=== PATIENT | male | born 1960 | race Caucasian/White ===

== ENCOUNTER → 2019-10-10 | Day surgery (SDC) | payer MEDICARE, OTHER ==
[~2019-10-10] MED LIST: Lactated Ringers 1,000 ML IV SCH; Lidocaine 1% 4 ML ONE; Lidocaine 1%/Sod Bicarbonate in NS 8.4% 1 ML Syringe IDERM PRN; Propofol 200 MG/20 ML SDV ONE; Sodium Chloride 0.9% 10 ML Syringe FLUSH PRN
--- NOTE | 2019-10-10 07:28 | PCM.PREANE ---
Preanesthetic Assessment - Anesthesia/Transfusion/Family Hx Anesthesia History: Prior Anesthesia Without Reaction Family History of Anesthesia Reaction: No Transfusion History: Prior Transfusion Without Reaction - Review of Systems General: No Symptoms Pulmonary: No Symptoms Cardiovascular: No Symptoms Gastrointestinal: No Symptoms Neurological: No Symptoms Other: Reports: None - Physical Assessment NPO Status Date: 10/09/19 NPO Status Time: 17:00 Vital Signs: Last Vital Signs Temp 35.8 C L 10/10/19 06:35 Pulse 73 10/10/19 06:35 Resp 16 10/10/19 06:35 BP 113/72 10/10/19 06:35 Pulse Ox 96 10/10/19 06:35 Height: 1.85 m Weight: 67.585 kg ASA Class: 2 Mental Status: Alert & Oriented x3 Airway Class: Mallampati = 1 Dentition: Reports: Normal Dentition Thyro-Mental Finger Breadths: 3 Mouth Opening Finger Breadths: 3 ROM/Head Extension: Full Lungs: Clear to Auscultation, Normal Respiratory Effort Cardiovascular: Regular Rate, Regular Rhythm - Lab Values: Laboratory Last Values COVID-19 PCR Not detected (NOT DETECT) 10/06/19 11:00 - Allergies Allergies/Adverse Reactions: Allergies Allergy/AdvReac Type Severity Reaction Status Date / Time No Known Allergies Allergy Verified 10/10/19 07:15 - Acknowledgements Anesthesia Type Planned: MAC Pt an Appropriate Candidate for the Planned Anesthesia: Yes Alternatives and Risks of Anesthesia Discussed w Pt/Guardian: Yes Pt/Guardian Understands and Agrees with Anesthesia Plan: Yes PreAnesthesia Questionnaire HEENT History: Reports: Other (See Below) Other HEENT History: dysphagia Cardiovascular History: Reports: None, Blood Clots/VTE/DVT, SOB on Exertion Respiratory History: Reports: None Gastrointestinal History: Reports: Cholelithiasis, Chronic Constipation, Diverticulosis, Hepatitis Genitourinary History: Reports: None 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 Musculoskeletal History: Reports: None, Back Pain, Chronic Neurological History: Reports: Brain Injury Psychiatric History: Reports: None Hematologic History: Reports: Blood Transfusion(s), Other (See Below) Other Hematologic History: DVT, antiphosphlipid syndrome Immunologic History: Reports: None Oncologic (Cancer) History: Reports: None Dermatologic History: Reports: None - Past Surgical History Head Surgeries/Procedures: Reports: None HEENT Surgical History: Reports: None Cardiovascular Surgical History: Reports: None Respiratory Surgical History: Reports: None GI Surgical History: Reports: Colonoscopy, EGD Female Surgical History: Reports: None Male Surgical History: Reports: None Endocrine Surgical History: Reports: Other (See Below) Other Endocrine Surgeries/Procedures: post splenectomy Neurological Surgical History: Reports: None Musculoskeletal Surgical History: Reports: None Oncologic Surgical History: Reports: None Dermatological Surgical History: Reports: None - SUBSTANCE USE Smoking Status *Q: Former Smoker Recreational Drug Use History: No - HOME MEDS Home Medications: Home Meds Acetaminophen/oxyCODONE [Percocet 325-5 MG] 1 tab PO Q6H PRN 10/07/19 [History] Naloxegol Oxalate [Movantik] 25 mg PO DAILY 10/07/19 [History] Sertraline [Zoloft] 50 mg PO DAILY 10/07/19 [History] Warfarin Sodium [Jantoven] 5 mg PO DAILY 10/07/19 [History] polyethylene glycoL 3350 [MiraLAX] 1 dose PO DAILY 10/07/19 [History] Enoxaparin [Lovenox] 80 mg SUBCUT ASDIRECTED 10/10/19 [History] - CURRENT (IN HOUSE) MEDS Current Meds: Current Medications Lactated Ringer's (Ringers, Lactated) 1,000 mls @ 125 mls/hr IV ASDIRECTED [facility] Stop: 10/10/19 23:00 Last Admin: 10/10/19 06:55 Dose: 125 mls/hr Documented by: Lidocaine/Sodium Bicarbonate (Buffered Lidocaine 1% In Ns 8.4%) 0.25 ml IDERM ONETIME PRN PRN Reason: Prior to IV Start Stop: 10/10/19 18:00 Last Admin: 10/10/19 06:55 Dose: 0.25 ml Documented by: Sodium Chloride (Saline Flush) 10 ml FLUSH ASDIRECTED PRN PRN Reason: Keep Vein Open Stop: 10/10/19 18:00 Discontinued Medications Lidocaine HCl (Xylocaine-Mpf 1%) Confirm Administered Dose 4 mls @ as directed .ROUTE .STK-MED ONE Stop: 10/10/19 07:02 Propofol (Diprivan 20 Ml) Confirm Administered Dose 200 mg .ROUTE .STK-MED ONE Stop: 10/10/19 07:02 Propofol (Diprivan 20 Ml) Confirm Administered Dose 200 mg .ROUTE .STK-MED ONE Stop: 10/10/19 07:04
--- NOTE | 2019-10-10 09:33 | PCM48HPAN ---
Post Anesthesia Note - EVALUATION WITHIN 48HRS OF ANESTHETIC Vital Signs in Normal Range: Yes Patient Participated in Evaluation: Yes Respiratory Function Stable: Yes Airway Patent: Yes Cardiovascular Function Stable: Yes Hydration Status Stable: Yes Pain Control Satisfactory: Yes Nausea and Vomiting Control Satisfactory: Yes Mental Status Recovered: Yes Vital Signs: Last Vital Signs Temp 35.8 C L 10/10/19 06:35 Pulse 73 10/10/19 06:35 Resp 16 10/10/19 06:35 BP 113/72 10/10/19 06:35 Pulse Ox 96 10/10/19 06:35
--- NOTE | 2019-10-11 09:28 | PROC ---
DATE OF OPERATION: 10/10/2019 SURGEON: Robles Ceron MD PREOPERATIVE DIAGNOSES: 1. Hematochezia. 2. Early satiety. 3. Family history of colon cancer. POSTOPERATIVE DIAGNOSES: 1. Gastritis with patch gastric petechiae. 2. Inflamed internal hemorrhoids that were banded. PROCEDURES: 1. Esophagogastroduodenoscopy. 2. Colonoscopy. 3. Hemorrhoid banding. ANESTHESIA: Monitored anesthesia care. ESTIMATED BLOOD LOSS: Minimal. INDICATION AND CONSENT: Mr. Proctor is a 59-year-old male who presented and was evaluated in clinic for history of constipation, bloody bowel movement, and early satiety. The patient has family history of colon cancer. He has been battling constipation for a long time and he has seen blood in stool on several occasions. He denied any excruciating pain with passing of bowel movement. The patient is currently on anticoagulation, warfarin, due to a history of DVT and PE. Because of his bleeding episode, history of colon cancer, as well as upper GI symptoms, EGD and colonoscopy were offered to the patient. Discussion about risks, benefits, and alternatives was done and the patient agreed to proceed with the procedure. Informed consent was obtained. The patient was asked to stop anticoagulation, warfarin, 5 days prior to the procedure and bridge with Lovenox, which he is to stop 1 day before the procedure. The patient did exactly as told. DESCRIPTION OF PROCEDURE: The patient was taken to the procedure room, placed in supine position. Following induction of monitored anesthesia care, the patient's position was turned to left lateral decubitus. Time-out was performed. Then, we began the procedure by placing a scope into the mouth and going all the way down through the esophagus to the stomach and to the second portion of duodenum. The duodenum was normal. In the stomach, there were numerous patchy areas of petechiae throughout the stomach. There was no active bleeding, but there were also signs of inflammation in the stomach marked by diffuse granularity. Due to these findings, samples were taken first from the antrum, stomach body, as well as the cardia. The endoscope was withdrawn to the esophagus. The esophagus appeared normal. Z-line was irregular. Therefore, samples were taken from the Z-line as well. The rest of the esophagus appeared normal. The scope was withdrawn from the esophagus and we proceeded with colonoscopy. External exam and digital exam revealed fairly inflamed hemorrhoids. All 3 columns of hemorrhoids were about grade 3 and part of them were inflamed, showing denudation of the mucosa in 2 of the 3 columns. There was no active bleeding. Scope was inserted into the colon and taken all the way to the cecum. Appendiceal orifice and ileocecal valve were photographed. Prep was adequate in quality. The scope was then withdrawn from the cecum, examining the entirety of the colonic mucosa all the way out. There were no polyps. There were diverticulosis scattered and small. There were no other signs of bleeding. Around 10 cm from the anal verge, there was an area that was clearly demarcated that appeared erythematous and red, likely due to scope trauma. This was not biopsied. This area was small, was about 1 cm x 0.5 cm. Then, on retroflexion, we again visualized those 3 columns of grade 3 hemorrhoids. At this point, air was suctioned out and scope was withdrawn concluding the colonoscopy procedure. We proceeded with hemorrhoid banding. A banding device was used and 2 columns of internal hemorrhoids, the right posterior and right anterior were banded. These were the largest and the most denuded hemorrhoids. The left lateral column was left intact due to risk of bleeding. There was minimal bleeding after this procedure and this concluded the procedure for today. The patient will be allowed to go home today. The patient is instructed to do sitz baths, take MiraLAX and Metamucil as well as Tylenol for pain. The patient is instructed to call the office or come to the ED should he start bleeding profusely. The patient is asked to not take any antiplatelets or anticoagulants for 10 days post procedure. The patient verbalized understanding. MMODAL /[id number] MARICARMEN
== END | disposition home or self-care (01) ==
LOC: JD.SDS 06:34
PROVIDERS: ATTEND Surgery
DX: K57.31 Diverticulosis of large intestine without perforation or abscess with bleeding (principal); K29.70 Gastritis, unspecified, without bleeding; K20.9 Esophagitis, unspecified; K64.2 Third degree hemorrhoids; K22.70 Barrett's esophagus without dysplasia; K31.89 Other diseases of stomach and duodenum; Z11.59 Encounter for screening for other viral diseases; Z98.890 Other specified postprocedural states; Z80.0 Family history of malignant neoplasm of digestive organs; Z79.899 Other long term (current) drug therapy; Z87.891 Personal history of nicotine dependence
CPT/HCPCS: 36415; 43239; 45378; 46221; 85610; 88305; J2001; J2704; J7120; U0002; 00813

== ENCOUNTER 2020-02-03 12:31 | Emergency (ER) | payer MEDICARE, OTHER ==
[2020-02-03] MEDS ORDERED: Ondansetron 4 MG/2 ML SDV IVPUSH ONE (13:02)
[2020-02-03] MEDS ORDERED: HYDROmorphone 1 MG/ML Syringe IVPUSH ONE (13:02)
--- NOTE | 2020-02-03 13:04 | EDM.PDOC ---
ED HPI GENERAL MEDICAL PROBLEM - General Chief Complaint: Lower Extremity Injury/Pain Stated Complaint: [facility] Time Seen by Provider: 02/03/20 12:57 Source of Information: Reports: Patient, RN Notes Reviewed History Limitations: Reports: No Limitations - History of Present Illness INITIAL COMMENTS - FREE TEXT/NARRATIVE: Patient is a 59-year-old male who presents to the ED via [facility] for the evaluation of his left hip pain. Patient states that he did fall outside his house earlier today, landed on his left hip. There is external rotation noted. But no shortening. There is an obvious deformity or swelling at the hip as well. He states there is quite a bit of pain with any sort of movement. He was not able to walk on this afterwards. He denies any numbness or tingling into his left leg. Patient denies any other sick-like symptoms, fever/chills, cough/shortness of breath, nausea/vomiting/diarrhea. He further denies any prior issues with his hip. The patient's primary care provider is Dr. Brandt Barakat. Left Hip Pain Score (Numeric/FACES): 8 - Related Data Allergies Allergy/AdvReac Type Severity Reaction Status Date / Time No Known Allergies Allergy Verified 02/03/20 12:41 Home Meds: Home Meds Acetaminophen/oxyCODONE [Percocet 325-5 MG] 1 tab PO Q6H PRN 10/07/19 [History] Naloxegol Oxalate [Movantik] 25 mg PO DAILY 10/07/19 [History] Sertraline [Zoloft] 50 mg PO DAILY 10/07/19 [History] Warfarin Sodium [Jantoven] 5 mg PO DAILY 10/07/19 [History] polyethylene glycoL 3350 [MiraLAX] 1 dose PO DAILY 10/07/19 [History] Past Medical History HEENT History: Reports: Other (See Below) Other HEENT History: dysphagia Cardiovascular History: Reports: Blood Clots/VTE/DVT, SOB on Exertion Respiratory History: Reports: None Gastrointestinal History: Reports: Cholelithiasis, Chronic Constipation, Diverticulosis, Hepatitis Genitourinary History: Reports: None 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 Musculoskeletal History: Reports: Back Pain, Chronic, Fracture Neurological History: Reports: Brain Injury Psychiatric History: Reports: None Hematologic History: Reports: Blood Transfusion(s), Other (See Below) Other Hematologic History: DVT, antiphosphlipid syndrome Immunologic History: Reports: None Oncologic (Cancer) History: Reports: None Dermatologic History: Reports: None - Past Surgical History Respiratory Surgical History: Reports: None GI Surgical History: Reports: Colonoscopy, EGD, Other (See Below) Other GI Surgeries/Procedures: splenectomy Social & Family History - Tobacco Use Tobacco Use Status *Q: Former Tobacco User Used Tobacco, but Quit: Yes Month/Year Tobacco Last Used: 2014 - Caffeine Use Caffeine Use: Reports: Coffee - Recreational Drug Use Recreational Drug Use: No Review of Systems - Review of Systems Review Of Systems: Comprehensive ROS is negative, except as noted in HPI. ED EXAM, GENERAL - Physical Exam Exam: See Below Exam Limited By: No Limitations General Appearance: Alert, WD/WN, No Apparent Distress Respiratory/Chest: No Respiratory Distress, Lungs Clear, Normal Breath Sounds, No Accessory Muscle Use, Chest Non-Tender Cardiovascular: Normal Peripheral Pulses, Regular Rate, Rhythm, No Murmur GI/Abdominal: Normal Bowel Sounds, Soft, Non-Tender, No Distention, No Mass Extremities: Normal Capillary Refill, Limited Range of Motion (of left hip d/t pain. there is an obvious deformity noted to lef hip vs. swelling) Neurological: Alert, Oriented, Normal Cognition Psychiatric: Normal Affect, Normal Mood Skin Exam: Warm, Dry, Intact, Normal Color, No Rash #1 Interpretation EKG Date: 02/03/20 Time: 14:54 Rhythm: NSR Rate (Beats/Min): 74 [place]: Normal P-Wave: Present QRS: Normal ST-T: Normal QT: Normal Comparison: NA - No Prior EKG EKG Interpretation Comments: No obvious ischemia or acute ST changes noted, reviewed by myself and Dr. Watson. Course - Vital Signs Last Recorded V/S: Last Vital Signs Temp 97.9 F 02/03/20 12:39 Pulse 72 02/03/20 12:39 Resp 16 02/03/20 12:39 BP 143/89 H 02/03/20 12:39 Pulse Ox 94 L 02/03/20 12:39 - Orders/Labs/Meds Orders: Active Orders 24 hr Category Date Time Status EKG Documentation Completion [RC] STAT Care 02/03/20 14:25 Active Floyd Catheter Insertion [Insert Urinary Catheter] [OM. Care 02/03/20 17:39 Ordered PC] Stat Urinary Catheter Assessment [RC] ASDIRECTED Care 02/03/20 17:42 Ordered Hip Min 2V or 3V w Pelvis Lt [CR] Stat Exams 02/03/20 12:43 Taken Hip wo Cont Lt [CT] Stat Exams 02/03/20 17:35 Ordered INR,PT,PROTHROMBIN TIME [COAG] Stat Lab 02/03/20 17:36 Ordered PTT,PARTIAL THROMBOPLSTIN TIME [COAG] Stat Lab 02/03/20 17:36 Ordered Labs: Laboratory Tests 02/03/20 02/03/20 02/03/20 Range/Units 14:32 14:32 14:47 WBC 15.51 H (4.23-9.07) K/mm3 RBC 4.83 (4.63-6.08) M/mm3 Hgb 15.7 (13.7-17.5) gm/dl Hct 45.9 (40.1-51.0) % MCV 95.0 H (79.0-92.2) fl MCH 32.5 H (25.7-32.2) pg MCHC 34.2 (32.2-35.5) g/dl RDW Std Deviation 47.7 H (35.1-43.9) fL Plt Count 274 (163-337) K/mm3 MPV 9.9 (9.4-12.3) fl Neut % (Auto) 82.8 H (34.0-67.9) % Lymph % (Auto) 9.5 L (21.8-53.1) % [place] % (Auto) 7.5 (5.3-12.2) % Eos % (Auto) 0 L (0.8-7.0) Baso % (Auto) 0.2 (0.1-1.2) % Neut # (Auto) 12.85 H (1.78-5.38) K/mm3 Lymph # (Auto) 1.47 (1.32-3.57) K/mm3 [place] # (Auto) 1.16 H (0.30-0.82) K/mm3 Eos # (Auto) 0.00 L (0.04-0.54) K/mm3 Baso # (Auto) 0.03 (0.01-0.08) K/mm3 Manual Slide Review Abnormal smear Sodium 135 L (136-145) mEq/L Potassium 4.6 (3.5-5.1) mEq/L Chloride 102 (98-107) mEq/L Carbon Dioxide 25 (21-32) mEq/L Anion Gap 12.6 (5-15) BUN 11 (7-18) mg/dL Creatinine 1.0 (0.7-1.3) mg/dL Est Cr Clr Drug Dosing 77.14 mL/min Estimated GFR (MDRD) > 60 (>60) mL/min BUN/Creatinine Ratio 11.0 L (14-18) Glucose 115 (80-115) mg/dL Calcium 9.3 (8.5-10.1) mg/dL Total Bilirubin 0.7 (0.2-1.0) mg/dL AST 33 (15-37) U/L ALT 41 (16-63) U/L Alkaline Phosphatase 66 (46-116) U/L Total Protein 7.4 (6.4-8.2) g/dl Albumin 3.9 (3.4-5.0) g/dl Globulin 3.5 gm/dL Albumin/Globulin Ratio 1.1 (1-2) SARS-CoV-2 RNA (SOFYA) Negative (NEGATIVE) Meds: Medications Discontinued Medications Generic Name Dose Route Start Last Admin Trade Name Freq PRN Reason Stop Dose Admin Hydromorphone HCl 1 mg 02/03/20 13:02 02/03/20 13:47 Dilaudid IVPUSH 02/03/20 13:03 1 mg ONETIME ONE Administration Hydromorphone HCl 0.5 mg 02/03/20 14:50 02/03/20 15:06 Dilaudid IVPUSH 02/03/20 14:51 0.5 mg ONETIME ONE Administration Hydromorphone HCl 0.5 mg 02/03/20 17:42 Dilaudid IVPUSH 02/03/20 17:43 ONETIME ONE Ondansetron HCl 4 mg 02/03/20 13:02 02/03/20 13:47 Zofran IVPUSH 02/03/20 13:03 4 mg ONETIME ONE Administration - Re-Assessments/Exams Free Text/Narrative Re-Assessment/Exam: 02/03/20 13:05 Patient presents to the ED for his left hip pain. Have ordered x-rays, will give the patient 1 mg IV Dilaudid for pain management purposes along with 4 mg Zofran. There is something obviously wrong with his left hip, questioning fracture versus dislocation. 02/03/20 14:28 The patient's hip x-ray has been obtained, and there is comminution and impaction at the left surgical neck and trochanter Departure - Departure Time of Disposition: 16:45 Disposition: DC/Tfer to Acute Hospital 02 Condition: Good Clinical Impression: Hip fracture, left Qualifiers: Encounter type: initial encounter Fracture type: closed Qualified Code(s): S72.002A - Fracture of unspecified part of neck of left femur, initial encounter for closed fracture - Discharge Information *PRESCRIPTION DRUG MONITORING PROGRAM REVIEWED*: No *COPY OF PRESCRIPTION DRUG MONITORING REPORT IN PATIENT DANIEL: No Referrals: PCP,None [Primary Care Provider] - Forms: ED Department Discharge Sepsis Event Note (ED) - Evaluation Sepsis Screening Result: No Definite Risk - Focused Exam Vital Signs: Vital Signs Temp Pulse Resp BP Pulse Ox 02/03/20 12:39 97.9 F 72 16 143/89 H 94 L - My Orders Last 24 Hours: My Active Orders 02/03/20 12:43 Hip Min 2V or 3V w Pelvis Lt [CR] Stat 02/03/20 14:25 EKG Documentation Completion [RC] STAT 02/03/20 17:35 Hip wo Cont Lt [CT] Stat 02/03/20 17:36 INR,PT,PROTHROMBIN TIME [COAG] Stat PTT,PARTIAL THROMBOPLSTIN TIME [COAG] Stat 02/03/20 17:39 Floyd Catheter Insertion [Insert Urinary Catheter] [OM.PC] Stat 02/03/20 17:42 Urinary Catheter Assessment [RC] ASDIRECTED - Assessment/Plan Last 24 Hours: My Active Orders 02/03/20 12:43 Hip Min 2V or 3V w Pelvis Lt [CR] Stat 02/03/20 14:25 EKG Documentation Completion [RC] STAT 02/03/20 17:35 Hip wo Cont Lt [CT] Stat 02/03/20 17:36 INR,PT,PROTHROMBIN TIME [COAG] Stat PTT,PARTIAL THROMBOPLSTIN TIME [COAG] Stat 02/03/20 17:39 Floyd Catheter Insertion [Insert Urinary Catheter] [OM.PC] Stat 02/03/20 17:42 Urinary Catheter Assessment [RC] ASDIRECTED
[2020-02-03] MEDS ORDERED: HYDROmorphone 0.5 MG/0.5 ML Syringe IVPUSH ONE ×2 (14:50→17:42)
--- NOTE | 2020-02-06 10:31 | CR ---
PROCEDURE INFORMATION: Exam: XR Bilateral Hips with Pelvis when Performed Exam date and time: 02/03/2020 2:13 PM Age: 59 years old Clinical indication: Injury or trauma; Fall; Fracture of pelvis & hip; Left; Not specified; Neck of femur TECHNIQUE: Imaging protocol: XR bilateral hips with pelvis when performed. Views: 2 views. COMPARISON: CT Abdomen Pelvis w Cont 07/27/2014 8:50 AM FINDINGS: Bones/joints: Comminuted fracture of the left femoral neck is present with impaction. There is no evidence of joint malalignment or dislocation. Large bony fragment is displaced laterally approximately 1.4 cm. Joint effusion and soft tissue swelling. Soft tissues: See "Bones/joints" finding. Vasculature: The vasculature demonstrates diffuse mild atherosclerotic calcification. IMPRESSION: 1. Comminuted fracture of the left femoral neck is present with impaction. 2. No evidence of acute dislocation. 3. Joint effusion and soft tissue swelling. Thank you for allowing us to participate in the care of your patient. Dictated and Authenticated by: Guillermo Puente DO 02/03/2020 3:28 PM Central Time ([place] & [place]) [facility]ITAL[facility]
--- NOTE | 2020-02-06 10:32 | CT ---
PROCEDURE INFORMATION: Exam: CT Left Lower Extremity Without Contrast, Hip Exam date and time: 02/03/2020 5:41 PM Age: 59 years old Clinical indication: Injury or trauma; Fall; Fracture, traumatic; Closed fracture; Hip; Left; Additional info: Fall FX hip CT rec. By ortho TECHNIQUE: Imaging protocol: CT of the Left lower extremity without contrast was performed. Exam focused on the hip. COMPARISON: DX Hip Min 2V or 3V w Pelvis Lt 02/03/2020 2:13 PM FINDINGS: Bones/joints: Comminuted fracture of the left femoral neck present with increased varus angulation. Displaced lateral bony fragment is present. There is impaction of the fracture fragments as well. Hip joint effusion. Mild degenerative changes of the left hip. Soft tissues: Moderate soft tissue swelling. Vasculature: The vasculature demonstrates diffuse mild atherosclerotic calcification. IMPRESSION: 1. Comminuted fracture of the left femoral neck present with increased varus angulation. 2. There is impaction of the fracture fragments as well. 3. Moderate soft tissue swelling. 4. Hip joint effusion. Thank you for allowing us to participate in the care of your patient. Dictated and Authenticated by: Guillermo Puente DO 02/03/2020 8:09 PM Central Time ([place] & [place]) MARICARMEN
== END 2020-02-03 18:35 ==
LOC: JD.ED 12:31
DX: S72.002A Fracture of unspecified part of neck of left femur, initial encounter for closed fracture (principal); Z86.718 Personal history of other venous thrombosis and embolism; Z79.01 Long term (current) use of anticoagulants; Z79.899 Other long term (current) drug therapy; Z87.891 Personal history of nicotine dependence; Z20.828 Contact with and (suspected) exposure to other viral communicable diseases; W19.XXXA Unspecified fall, initial encounter
CPT/HCPCS: 36415; 51702; 73502; 73700; 80053; 85025; 85610; 85730; 93005; 96374; 96375; 96376; 99285; J1170; J2405; U0002; 93010; 99284

== ENCOUNTER 2021-01-14 09:24 | Day surgery (SDC) | payer MEDICARE, OTHER ==
--- NOTE | 2021-01-04 11:47 | PCM.PREANE ---
Preanesthetic Assessment - Procedure Proposed Procedure: EGD-case cancelled - Anesthesia/Transfusion/Family Hx Intubation History: Unknown - Physical Assessment Vital Signs: HR: Sat: Temp: B/P: Resp: - Allergies Allergies/Adverse Reactions: Allergies Allergy/AdvReac Type Severity Reaction Status Date / Time No Known Allergies Allergy Verified 02/03/20 12:41 PreAnesthesia Questionnaire HEENT History: Reports: Other (See Below) Other HEENT History: dysphagia Cardiovascular History: Reports: Blood Clots/VTE/DVT, SOB on Exertion Respiratory History: Reports: None Gastrointestinal History: Reports: Cholelithiasis, Chronic Constipation, Diverticulosis, Hepatitis Genitourinary History: Reports: None 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 Musculoskeletal History: Reports: Back Pain, Chronic, Fracture Neurological History: Reports: Brain Injury Psychiatric History: Reports: None Hematologic History: Reports: Blood Transfusion(s), Other (See Below) Other Hematologic History: DVT, antiphosphlipid syndrome Immunologic History: Reports: None Oncologic (Cancer) History: Reports: None Dermatologic History: Reports: None - Past Surgical History Respiratory Surgical History: Reports: None GI Surgical History: Reports: Colonoscopy, EGD, Other (See Below) Other GI Surgeries/Procedures: splenectomy - HOME MEDS Home Medications: Home Meds Acetaminophen/oxyCODONE [Percocet 325-5 MG] 1 tab PO Q6H PRN 10/07/19 [History] Naloxegol Oxalate [Movantik] 25 mg PO DAILY 10/07/19 [History] Sertraline [Zoloft] 50 mg PO DAILY 10/07/19 [History] Warfarin Sodium [Jantoven] 5 mg PO DAILY 10/07/19 [History] polyethylene glycoL 3350 [MiraLAX] 1 dose PO DAILY 10/07/19 [History] - CURRENT (IN HOUSE) MEDS Current Meds: Current Medications Lactated Ringer's (Ringers, Lactated) 1,000 mls @ 125 mls/hr IV ASDIRECTED [facility] Stop: 01/07/21 23:00 Lidocaine/Sodium Bicarbonate (Lidocaine 1%/Sod Bicarbonate In Ns 8.4% 1 Ml Syringe) 0.25 ml IDERM ONETIME PRN PRN Reason: Prior to IV Start Stop: 01/07/21 18:00 Sodium Chloride (Sodium Chloride 0.9% 10 Ml Syringe) 10 ml FLUSH ASDIRECTED PRN PRN Reason: Keep Vein Open Stop: 01/07/21 18:00
[~2021-01-14 09:24] MED LIST changes: -Lidocaine 1% 4 ML ONE; -Propofol 200 MG/20 ML SDV ONE
--- NOTE | 2021-01-14 11:03 | PCM.PREANE ---
Preanesthetic Assessment - Procedure Proposed Procedure: egd - Anesthesia/Transfusion/Family Hx Anesthesia History: Prior Anesthesia Without Reaction Family History of Anesthesia Reaction: No Transfusion History: Prior Transfusion Without Reaction Intubation History: Unknown - Review of Systems General: No Symptoms Pulmonary: Cough (issue with throat- couple weeks already) Cardiovascular: No Symptoms Gastrointestinal: No Symptoms Other: Reports: None (history of antiphospholipid syndrome/hepatitis C: chronic opiod use), Easy Bleeding (History of DVT: on lovenox and jantoven: last dose:), Easy Bruising, Liver Problems (hepatitis c), Depression - Physical Assessment NPO Status Date: 01/06/21 NPO Status Time: 20:00 Vital Signs: Last Vital Signs Temp 97.3 F 01/14/21 10:15 Pulse 75 01/14/21 10:15 Resp 16 01/14/21 10:15 BP 125/78 01/14/21 10:15 Pulse Ox 97 01/14/21 10:15 01/14/21 125/76 71 97% 16 97.9 Height: 6 ft 1 in Weight: 74.389 kg ASA Class: 3 Mental Status: Alert & Oriented x3 Airway Class: Mallampati = 1 Dentition: Reports: Normal Dentition Thyro-Mental Finger Breadths: 3 Mouth Opening Finger Breadths: 3 ROM/Head Extension: Full Lungs: Clear to Auscultation, Normal Respiratory Effort Cardiovascular: Regular Rate, Regular Rhythm - Allergies Allergies/Adverse Reactions: Allergies Allergy/AdvReac Type Severity Reaction Status Date / Time No Known Allergies Allergy Verified 01/14/21 10:27 - Acknowledgements Anesthesia Type Planned: MAC Pt an Appropriate Candidate for the Planned Anesthesia: Yes Alternatives and Risks of Anesthesia Discussed w Pt/Guardian: Yes Pt/Guardian Understands and Agrees with Anesthesia Plan: Yes PreAnesthesia Questionnaire HEENT History: Reports: Other (See Below) Other HEENT History: dysphagia Cardiovascular History: Reports: Blood Clots/VTE/DVT, SOB on Exertion Respiratory History: Reports: None, Other (See Below) (former smoker) Gastrointestinal History: Reports: Cholelithiasis, Chronic Constipation, Diverticulosis, GERD, Hepatitis Genitourinary History: Reports: None TRAUMA DIRECTOR History: Reports: None Musculoskeletal History: Reports: Back Pain, Chronic, Fracture Neurological History: Reports: Brain Injury Psychiatric History: Reports: None Endocrine/Metabolic History: Reports: None Hematologic History: Reports: Blood Transfusion(s), Other (See Below) Other Hematologic History: DVT, antiphosphlipid syndrome Immunologic History: Reports: None Oncologic (Cancer) History: Reports: None Dermatologic History: Reports: None - Past Surgical History Head Surgeries/Procedures: Reports: None HEENT Surgical History: Reports: None Cardiovascular Surgical History: Reports: None Respiratory Surgical History: Reports: None GI Surgical History: Reports: Colonoscopy, EGD, Other (See Below) Other GI Surgeries/Procedures: splenectomy Female Surgical History: Reports: None Male Surgical History: Reports: None Endocrine Surgical History: Reports: Other (See Below) Other Endocrine Surgeries/Procedures: post splenectomy Neurological Surgical History: Reports: None Musculoskeletal Surgical History: Reports: None, Other (See Below) (let hip pin) Oncologic Surgical History: Reports: None Dermatological Surgical History: Reports: None - SUBSTANCE USE Tobacco Use Status *Q: Former Tobacco User Tobacco Use Within Last Twelve Months: No, Other (See Below) (now uses marijuana for pain daily-) Second Hand Smoke Exposure: No Days Per Week of Alcohol Use: 7 Number of Drinks Per Day: 1 Total Drinks Per Week: 7 Recreational Drug Use History: No Recreational Drug Type: Reports: Marijuana/Hashish - HOME MEDS Home Medications: Home Meds Acetaminophen/oxyCODONE [Percocet 325-5 MG] 1 tab PO Q6H PRN 10/07/19 [History] Sertraline [Zoloft] 50 mg PO DAILY 10/07/19 [History] Warfarin Sodium [Jantoven] 5 mg PO DAILY 10/07/19 [History] Omeprazole Magnesium [Prilosec Otc] 20 mg PO DAILY 01/11/21 [History] Enoxaparin [Lovenox] 80 mg SUBCUT DAILY 01/14/21 [History] - CURRENT (IN HOUSE) MEDS Current Meds: Current Medications Lactated Ringer's (Ringers, Lactated) 1,000 mls @ 125 mls/hr IV ASDIRECTED ASTRID Stop: 01/14/21 23:00 Last Admin: 01/14/21 10:27 Dose: 125 mls/hr Documented by: Lidocaine/Sodium Bicarbonate (Lidocaine 1%/Sod Bicarbonate In Ns 8.4% 1 Ml Syringe) 0.25 ml IDERM ONETIME PRN PRN Reason: Prior to IV Start Stop: 01/14/21 18:00 Last Admin: 01/14/21 10:27 Dose: 0.25 ml Documented by: Sodium Chloride (Sodium Chloride 0.9% 10 Ml Syringe) 10 ml FLUSH ASDIRECTED PRN PRN Reason: Keep Vein Open Stop: 01/14/21 18:00 Discontinued Medications Lactated Ringer's (Ringers, Lactated) 1,000 mls @ 125 mls/hr IV ASDIRECTED ASTRID Stop: 01/07/21 23:00 Lidocaine/Sodium Bicarbonate (Lidocaine 1%/Sod Bicarbonate In Ns 8.4% 1 Ml Syringe) 0.25 ml IDERM ONETIME PRN PRN Reason: Prior to IV Start Stop: 01/07/21 18:00 Sodium Chloride (Sodium Chloride 0.9% 10 Ml Syringe) 10 ml FLUSH ASDIRECTED PRN PRN Reason: Keep Vein Open Stop: 01/07/21 18:00
[2021-01-14] MEDS ORDERED: Propofol 200 MG/20 ML SDV ONE ×2 (11:25→12:35)
[2021-01-14] MEDS ORDERED: Midazolam 1 MG/ML 2 ML SDV ONE (11:25)
[2021-01-14] MEDS ORDERED: fentaNYL 100 MCG/2 ML SDV ONE (11:25)
[2021-01-14] MEDS ORDERED: Lidocaine 1% 4 ML ONE (11:25)
--- NOTE | 2021-01-14 13:19 | PCM48HPAN ---
Post Anesthesia Note - EVALUATION WITHIN 48HRS OF ANESTHETIC Vital Signs in Normal Range: Yes Patient Participated in Evaluation: Yes Respiratory Function Stable: Yes Airway Patent: Yes Cardiovascular Function Stable: Yes Hydration Status Stable: Yes Pain Control Satisfactory: Yes Nausea and Vomiting Control Satisfactory: Yes Mental Status Recovered: Yes Vital Signs: Last Vital Signs Temp 97.3 F 01/14/21 10:15 Pulse 75 01/14/21 10:15 Resp 16 01/14/21 10:15 BP 125/78 01/14/21 10:15 Pulse Ox 97 01/14/21 10:15 1309 73 14 97.6 98% 124/66
--- NOTE | 2021-01-14 13:51 | PROC ---
DATE OF OPERATION: 01/14/2021 SURGEON: Robles Ceron MD PREOPERATIVE DIAGNOSIS: Gastric intestinal metaplasia and Vazquez esophagus. POSTOPERATIVE DIAGNOSIS: LA grade A esophagitis. GE junction tissue suspicious for Vazquez esophagus. OPERATION PERFORMED: Esophagogastroduodenoscopy with biopsies. ANESTHESIA: Monitored anesthesia care. COMPLICATIONS: None. ESTIMATED BLOOD LOSS: Minimal. INDICATION AND CONSENT: Mr. Proctor is 60, who underwent EGD with colonoscopy last year. EGD did reveal gastric intestinal metaplasia from biopsies from the antrum and GE junction showed Vazquez esophagus. The patient is here for 1 year surveillance followup. We discussed risks, benefits, and alternatives and informed consent was signed. The patient is on Coumadin and he stopped Coumadin about 7 days ago. DESCRIPTION OF PROCEDURE: The patient was taken to the procedure room, placed in left lateral decubitus position. Monitored anesthesia care was induced. Bite block was placed. We put an EGD into the mouth and taken all the way to the second portion of duodenum which was normal. First portion was normal. Bulb was normal. The entire stomach appeared to be normal. We took random biopsies in the antrum, stomach body, and fundus due to history of gastric intestinal metaplasia. Then, we went into the GE junction which was at 42 cm from the incisors. There was LA grade A esophagitis at this area. At the GE junction, there was some mucosa that appeared to be salmon colored indicative of Vazquez esophagus. Four quadrant biopsies were taken and placed in 4 separate bottles, this was for surveillance. There was a very short segment, probably 1 to 5 mm. Once this was done, EBL was minimal. There was no bleeding at the end of the procedure. The entire esophagus appeared to be normal. Retroflexion did not reveal any hiatal hernias and air was suctioned from the stomach and the procedure was concluded. The patient will be allowed to return home and follow up in 2 weeks for pathology discussion. JENNIFER /[id number] MARICARMEN
== END 2021-01-14 13:50 | disposition home or self-care (01) ==
LOC: JD.SDS 09:24
PROVIDERS: ATTEND Surgery
DX: K22.70 Barrett's esophagus without dysplasia (principal); K31.A13 Gastric intestinal metaplasia without dysplasia, involving the fundus; I82.729 Chronic embolism and thrombosis of deep veins of unspecified upper extremity; K20.90 Esophagitis, unspecified without bleeding; Z98.890 Other specified postprocedural states; Z87.891 Personal history of nicotine dependence; Z79.899 Other long term (current) drug therapy; Z20.822 Contact with and (suspected) exposure to COVID-19
CPT/HCPCS: 00731; 36415; 85610; 88305; J2250; J2704; J3010; J7120

== ENCOUNTER 2021-02-23 11:58 | Emergency (ER) | payer MEDICARE, OTHER ==
--- NOTE | 2021-02-23 12:28 | EDM.PDOC ---
ED HPI GENERAL MEDICAL PROBLEM - General Chief Complaint: Lower Extremity Injury/Pain Stated Complaint: PAIN IN LEG Time Seen by Provider: 02/23/21 12:22 - History of Present Illness INITIAL COMMENTS - FREE TEXT/NARRATIVE: 60-year-old male presents the emergency room with right lower extremity pain. Patient currently is on Coumadin. He had an episode of calf pain about a week ago that reminded him like his blood clot was coming back however this resolved after a few hours. He also complains of painful areas mostly in his right foot with these red spots. 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 He has not had any breathing difficulties or shortness of breath. No chest pain or chest pressure. Right leg Pain Score (Numeric/FACES): 0 - Related Data Allergies Allergy/AdvReac Type Severity Reaction Status Date / Time No Known Allergies Allergy Verified 01/14/21 10:27 Home Meds: Home Meds Acetaminophen/oxyCODONE [Percocet 325-5 MG] 1 tab PO Q6H PRN 10/07/19 [History] Sertraline [Zoloft] 50 mg PO DAILY 10/07/19 [History] Warfarin Sodium [Jantoven] 5 - 7.5 mg PO ASDIRECTED 10/07/19 [History] Past Medical History HEENT History: Reports: Other (See Below) Other HEENT History: dysphagia Cardiovascular History: Reports: Blood Clots/VTE/DVT, SOB on Exertion Respiratory History: Reports: SOB Gastrointestinal History: Reports: Cholelithiasis, Chronic Constipation, Diverticulosis, GERD, Hepatitis Genitourinary History: Reports: None PRIZER HAND History: Reports: None Musculoskeletal History: Reports: Back Pain, Chronic, Fracture Neurological History: Reports: Brain Injury Psychiatric History: Reports: None Endocrine/Metabolic History: Reports: None Hematologic History: Reports: Blood Transfusion(s), Other (See Below) Other Hematologic History: DVT, antiphosphlipid syndrome Immunologic History: Reports: None Oncologic (Cancer) History: Reports: None Dermatologic History: Reports: None - Infectious Disease History Infectious Disease History: Reports: Chicken Pox - Past Surgical History Head Surgeries/Procedures: Reports: None HEENT Surgical History: Reports: None Cardiovascular Surgical History: Reports: None Respiratory Surgical History: Reports: None GI Surgical History: Reports: Colonoscopy, EGD, Other (See Below) Other GI Surgeries/Procedures: splenectomy Male Surgical History: Reports: None Endocrine Surgical History: Reports: Other (See Below) Other Endocrine Surgeries/Procedures: post splenectomy Neurological Surgical History: Reports: None Musculoskeletal Surgical History: Reports: None, Other (See Below) Oncologic Surgical History: Reports: None Dermatological Surgical History: Reports: None Social & Family History - Family History Family Medical History: No Pertinent Family History - Tobacco Use Tobacco Use Status *Q: Never Tobacco User - Caffeine Use Caffeine Use: Reports: Coffee - Alcohol Use Days Per Week of Alcohol Use: 7 Number of Drinks Per Day: 2 Total Drinks Per Week: 14 - Recreational Drug Use Recreational Drug Use: Yes Recreational Drug Type: Reports: Marijuana/Hashish Recreational Drug Use Frequency: Daily Review of Systems - Review of Systems Review Of Systems: See Below Constitutional: Reports: No Symptoms Respiratory: Reports: No Symptoms Cardiovascular: Reports: No Symptoms GI/Abdominal: Reports: No Symptoms Genitourinary: Reports: No Symptoms Neurological: Reports: Other (He has some memory loss related to his TBI this is no worse than normal) ED EXAM, GENERAL - Physical Exam Exam: See Below Exam Limited By: No Limitations General Appearance: Alert, No Apparent Distress Respiratory/Chest: No Respiratory Distress, Lungs Clear, Normal Breath Sounds Cardiovascular: Regular Rate, Rhythm, No Edema, No Murmur Peripheral Pulses: 1+: Posterior Tibial (L), Posterior Tibial (R), Dorsalis Pedis (L) (Much harder to palpate than the posterior tibial), Dorsalis Pedis (R) (Much harder to palpate than the posterior tibial) GI/Abdominal: Normal Bowel Sounds, Soft, Non-Tender Back Exam: Normal Inspection. No: CVA Tenderness (L), CVA Tenderness (R) Extremities: Other (Right calf is entirely nontender at this time there is no erythema associated with it.) Neurological: Alert, Oriented, Normal Cognition Skin Exam: Other (He has what looks like a tenia infection mostly on the right foot to a much lesser degree in the left foot.) Course - Vital Signs Last Recorded V/S: Last Vital Signs Temp Pulse 80 02/23/21 12:11 Resp 16 02/23/21 12:11 BP 135/84 02/23/21 12:11 Pulse Ox 94 L 02/23/21 12:11 - Orders/Labs/Meds Labs: Laboratory Tests 02/23/21 02/23/21 Range/Units 13:04 13:04 WBC 9.53 H (4.23-9.07) K/mm3 RBC 5.24 (4.63-6.08) M/mm3 Hgb 16.6 (13.7-17.5) gm/dl Hct 50.2 (40.1-51.0) % MCV 95.8 H (79.0-92.2) fl MCH 31.7 (25.7-32.2) pg MCHC 33.1 (32.2-35.5) g/dl RDW Std Deviation 49.2 H (35.1-43.9) fL Plt Count 283 (163-337) K/mm3 MPV 9.5 (9.4-12.3) fl Neut % (Auto) 66.0 (34.0-67.9) % Lymph % (Auto) 20.4 L (21.8-53.1) % Tyler % (Auto) 12.7 H (5.3-12.2) % Eos % (Auto) 0.2 L (0.8-7.0) Baso % (Auto) 0.5 (0.1-1.2) % Neut # (Auto) 6.29 H (1.78-5.38) K/mm3 Lymph # (Auto) 1.94 (1.32-3.57) K/mm3 Tyler # (Auto) 1.21 H (0.30-0.82) K/mm3 Eos # (Auto) 0.02 L (0.04-0.54) K/mm3 Baso # (Auto) 0.05 (0.01-0.08) K/mm3 PT 22.3 H D (9.7-12.0) SECONDS INR 2.07 - Re-Assessments/Exams Free Text/Narrative Re-Assessment/Exam: 02/23/21 14:14 Patient's INR is therapeutic CBC is unremarkable. His exam is most consistent with tinea pedis involving the right foot more so than the left. I am suspi cious he is got developing vascular insufficiency of the lower extremities. His lower leg exam is entirely otherwise normal not suspicious for a blood clot and his INR is therapeutic. Departure - Departure Time of Disposition: 14:16 Disposition: Home, Self-Care 01 Clinical Impression: Tinea pedis - Discharge Information Referrals: Naresh Chicas MD [Primary Care Provider] - Forms: ED Department Discharge Additional Instructions: Turn to the emergency room with any questions problems or worsening symptoms. 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 Use it twice daily for 2 weeks. Treat both feet with it. Follow-up with your regular healthcare provider towards the end of the 2 weeks. Discuss vascular insufficiency in your lower extremities and follow-up on how the rash is doing. Sepsis Event Note (ED) - Evaluation Sepsis Screening Result: No Definite Risk - Focused Exam Vital Signs: Vital Signs Pulse Resp BP Pulse Ox 02/23/21 12:11 80 16 135/84 94 L
== END 2021-02-23 14:35 | disposition home or self-care (01) ==
LOC: JD.ED 11:58
DX: B35.3 Tinea pedis (principal)
CPT/HCPCS: 36415; 85025; 85610; 99282; 99283